=== PATIENT | male | born 1945 | race Caucasian/White ===

== ENCOUNTER 2016-09-13 15:45 | Emergency (ER) | payer OTHER ==
[~2016-09-13] VITALS: Ht 160 cm; Wt 65.9 kg
[2016-09-13 15:55] VITALS: BP 141/66; PULSE 88; RESP 18; O2SAT 97
[2016-09-13 17:03] LABS: Mean Corpuscular Hemoglobin 36.4 pg (27.0-35.0); Platelet Count 155 bil/L (150-400)
[2016-09-13 17:04] LABS: BASOPHILS % (AUTO) 0 % (0-3); EOSINOPHILS % (AUTO) 0 % (0-5); MONOCYTES % (AUTO) 6.4 % (4-12); NEUTROPHILS % (AUTO) 88.6 % (40-74)
[2016-09-13] MEDS ORDERED: Ondansetron 2 mg/mL 2 mL Inj IVPUSH ONE (17:05)
[2016-09-13] MEDS ORDERED: 0.9% Sodium Chloride 1,000 ML IV ONE ×2 (17:05→18:25)
[2016-09-13 17:28] LABS: Magnesium 1.5 mg/dL (1.6-2.6)
--- NOTE | 2016-09-13 18:02 | ED.REPORT ---
HPI-NVD Date of Service Sep 13, 2016 ED Provider: Darby Beasley MD Patient is a 71 year old male with a history of HIV who presents to the ED via EMS due to vomiting onset earlier today. Associated symptoms include nausea, dry heaving and generalized weakness that has since resolved. Patient reports that he has had normal bowel movements. He denies diarrhea, dizziness, fever, chills, extremity pain, hematuria, hematochezia, chest pain, shortness of breath or abdominal pain. The patient reports that he last ate at 2000 last night and started vomiting the food that he ate last night, this morning. Patient states he had over ten episodes of emesis today. Nursing Notes Stated Complaint: NAUSEA/VOMITING Chief Complaint: Male Abdominal Pain Nursing Notes Reviewed: Yes Allergies: Coded Allergies: No Known Allergies (Unverified , 09/13/16) General Time Seen by MD: 18:01 Chief Complaint Vomiting Hx Obtained From: Patient Arrived By: Ambulance Symptom Duration: Since onset Recent Healthcare: No recent hospitalization Past Medical History Past Medical History Reports: HIV Smoking History Unknown if Ever Smoker Ambulatory Status Independent Review of Systems Review of Systems Note: dry heaving Constitutional: Reports: Weakness - generalized, Denies: Chills, Fever GI: Reports: Nausea, Vomiting, Denies: Abdominal pain, Constipation, Diarrhea, Hematemesis, Hematochezia Skin: Denies Itching, Denies Rash Neurologic: Denies: Dizziness Complete sys rev & neg: except as marked. Respiratory: Denies: Non-productive cough, Shortness of breath Cardiovascular: Denies: Chest pain Male: Denies Hematuria Musculoskeletal: Denies: Extremity pain Physical Exam Initial Vital Signs Vital Signs (First) Date Time Temp Pulse Resp B/P Pulse Ox O2 Delivery O2 Flow Rate FiO2 09/13/16 15:55 36.7 88 18 141/66 97 Room Air Initial VS: Reviewed, Vital signs abnormal General/Constitutional: Awake, Alert, No acute distress Abdomen: Atraumatic, Soft, Non-tender, BS normoactive, No distention Respiratory / Chest: Atraumatic, Breath sounds NL, Breath sounds = bilat, No respiratory distress Cardiovascular: Heart rate NL, Regular rhythm, Heart sounds NL Back: Atraumatic, Non-tender Skin: Atraumatic, Color NL, No rash, Warm, Dry Neurologic: Oriented X3, Speech NL, No motor deficits, No sensory deficits Head / Eyes: Atraumatic, Normocephalic, PERRL, EOMI Upper Extremity / MS: Atraumatic, Inspection NL Lower Extremity / Pelvis / MS: Atraumatic, Inspection NL Psychiatric: Affect NL, Mood NL Interpretation & Diagnostics Lab Results Interpretation Result Diagram: 09/13/163 09/13/16 1653 Test 09/13/16 16:53 White Blood Count 8.9th/mm3 (3.8-10.1) Red Blood Count 3.05mil/mm3 (4.40-5.80) Hemoglobin 11.1g/dL (13.8-17.2) Hematocrit 31.4% (41.0-50.0) Mean Corpuscular Volume 103.0fL (81-100) Mean Corpuscular Hemoglobin 36.4pg (27.0-35.0) Mean Corpuscular Hemoglobin Concent 35.4% (32.0-37.0) Red Cell Distribution Width 12.6% (12.3-15.4) Platelet Count 155bil/L (150-400) Neutrophils (%) (Auto) 88.6% (40-74) Lymphocytes (%) (Auto) 4.8% (14-46) Monocytes (%) (Auto) 6.4% (4-12) Eosinophils (%) (Auto) 0% (0-5) Basophils (%) (Auto) 0% (0-3) Sodium Level 134mEq/L (134-144) Potassium Level 4.4mEq/L (3.5-5.2) Chloride Level 101mEq/L (97-108) Carbon Dioxide Level 17mmol/L (18-29) Blood Urea Nitrogen 46mg/dL (8-27) Creatinine 3.23mg/dL (0.76-1.27) Estimat Glomerular Filtration Rate 20mL/min (>59) Glucose Level 155mg/dL (60-99) Calcium Level 8.7mg/dL (8.5-10.1) Magnesium Level 1.5mg/dL (1.6-2.6) Total Bilirubin 0.2mg/dL (0.0-1.2) Aspartate Amino Transf (AST/SGOT) 27U/L (0-50) Alanine Aminotransferase (ALT/SGPT) 22U/L (0-44) Alkaline Phosphatase 155U/L (25-160) Total Protein 8.8g/dL (6.4-8.4) Albumin 3.2g/dL (3.4-5.0) Lipase 35U/L (13-60) Hold Bear Top Tube Received (Received) Re-Eval/Medical Decision Med Decision/Clinical Course The patient presents with vomiting, he received medications en route and is feeling improved. I told him that his renal function was not normal Mariela is normally elevated but cannot tell me the number. [facility] and more on the phone with them for an hour and were unsuccessful. The patient is feeling much improved and given he says he has a history of some renal problems he was discharged home. He was told he needs to contact his doctor tomorrow to see what his baseline creatinine is. As the patient's vomiting partial list of differential diagnoses considered were pancreatitis, cholecystitis, gastroenteritis, electrolyte abnormality, and bowel obstruction. Re-Evaluation/Progress #1: Time of Eval: 19:23 Re-Evaluation/Progress Note: Patient confirms having kidney function abnormalities. Re-Evaluation/Progress #2: Time of Eval: 19:56 Patient Status: Condition improved Re-Evaluation/Progress Note: Discussed plan for discharge. Patient understands and agrees to the plan. All questions were addressed. Counseled Regarding: Diagnosis, Lab results, Need for follow-up, When/why to return to ED Discharge & Departure Impression: Primary Impression: Vomiting Vomiting type: unspecified Vomiting Intractability: unspecified Nausea presence: with nausea Qualified Code: R11.2 - Nausea with vomiting, unspecified Additional Impression: Chronic renal failure Chronic kidney disease stage: unspecified stage Qualified Code: N18.9 - Chronic kidney disease, unspecified Disposition: Home Discharge Condition All VS Reviewed: Yes Condition: Stable Patient Instructions: Acute Nausea and Vomiting (ED) Additional Instructions: We were unable to confirm the level of your kidney function with the [facility]. You need to contact the [facility] tomorrow to see what your level was. Your Creatinine level today was 3.23. If your previous level was less than 2 you need to return to the ED. Return to the emergency department if you develop any new or concerning symptoms. Referrals: [facility] Scribe Attestation Portions of this note were transcribed by Catrachita Salgado. I, Dr. Beasley personally performed the history, physical exam and medical decision-making; I reviewed and confirmed the accuracy of the information in the transcribed note. Signed by: Marva Short, 09/13/16 and 2000 copies to: [facility] Darby Beasley MD Sep 13, 2016 18:02 Amy Salgado Sep 13, 2016 18:08
[2016-09-13] MEDS ORDERED: Magnesium Sulf 2 Gm/50mL Water 2 GM in IV Premix 1 EACH IV ONE (18:25)
[2016-09-13 19:04] VITALS: BP 105/58; PULSE 78; RESP 18; O2SAT 96
[2016-09-13 20:06] VITALS: BP 110/51; PULSE 71; RESP 16; O2SAT 97
== END 2016-09-13 20:06 | disposition home or self-care (01) ==
LOC: SED 15:45 → EDBD 15:45 → SED 20:06
DX: R11.2 Nausea with vomiting, unspecified (principal); N18.9 Chronic kidney disease, unspecified; B20 Human immunodeficiency virus [HIV] disease
CPT/HCPCS: 36415; 80053; 83690; 83735; 85025; 96361; 96374; 96375; 99284; J2405; J7030